=== PATIENT | female | born 1980 | race Caucasian/White ===

== ENCOUNTER 2017-04-05 15:31 | Emergency (ER) | payer MEDICAID ==
[~2017-04-05] VITALS: Ht 160 cm; Wt 81.2 kg
[2017-04-05 15:42] VITALS: Ht 160 cm; Wt 81.2 kg
[2017-04-05 17:16] LABS: BASOPHIL % 0.3 % (0-2); PLATELET COUNT 208 x10^3mcL (130-400); RED CELL DISTRIBUTION WIDTH 13.4 % (11.5-14.5)
[2017-04-05 17:30] LABS: CALCIUM 8.3 mg/dL (8.5-10.1); CARBON DIOXIDE 28.6 mmol/L (21-32); CHLORIDE SERUM 103 mmol/L (98-107); CREATININE SERUM 0.7 mg/dL (0.6-1.0); GFR1 > 60 mL/min; GLUCOSE SERUM 120 mg/dL (74-106); POTASSIUM SERUM 3.7 mmol/L (3.5-5.1); SODIUM SERUM 138 mmol/L (136-145)
[2017-04-05 17:35] LABS: ALKALINE PHOSPHATASE 108 U/L (46-116); ALT/SGPT 19 U/L (14-59); AST/SGOT 16 U/L (15-37); BILIRUBIN TOTAL 0.51 mg/dL (0.20-1.00); LIPASE 197 IU/L (73-393); TOTAL PROTEIN, SERUM 7.4 g/dL (6.4-8.2)
[2017-04-05 17:39] LABS: ALBUMIN 3.2 g/dL (3.4-5.0); AMYLASE 189 U/L (25-115)
[2017-04-05 18:35] VITALS: BP 124/70
== END 2017-04-05 18:35 | disposition home or self-care (01) ==
LOC: ED 15:31
PROVIDERS: Emergency Medicine
DX: K22.4 Dyskinesia of esophagus (principal)
CPT/HCPCS: 83880; J1885; Q0092

== ENCOUNTER 2017-04-19 08:19 | Emergency (ER) | payer MEDICAID ==
[~2017-04-19] VITALS: Ht 160 cm; Wt 80.3 kg
[2017-04-19 08:44] VITALS: Ht 160 cm; Wt 80.3 kg
[2017-04-19 12:29] LABS: BASOPHIL % 0.3 % (0-2); PLATELET COUNT 203 x10^3mcL (130-400); RED CELL DISTRIBUTION WIDTH 13.8 % (11.5-14.5)
[2017-04-19 12:34] LABS: CALCIUM 8.3 mg/dL (8.5-10.1); CARBON DIOXIDE 29.8 mmol/L (21-32); CHLORIDE SERUM 103 mmol/L (98-107); CREATININE SERUM 0.7 mg/dL (0.6-1.0); GFR1 > 60 mL/min; GLUCOSE SERUM 100 mg/dL (74-106); POTASSIUM SERUM 3.9 mmol/L (3.5-5.1); SODIUM SERUM 140 mmol/L (136-145)
[2017-04-19 12:39] LABS: ALBUMIN 3.5 g/dL (3.4-5.0); ALKALINE PHOSPHATASE 90 U/L (46-116); ALT/SGPT 17 U/L (14-59); AST/SGOT 12 U/L (15-37); BILIRUBIN TOTAL 0.6 mg/dL (0.20-1.00); TOTAL PROTEIN, SERUM 7.8 g/dL (6.4-8.2)
[2017-04-19 14:27] VITALS: BP 120/75
== END 2017-04-19 14:28 | disposition home or self-care (01) ==
LOC: ED 08:19
PROVIDERS: Specialist
DX: R10.13 Epigastric pain (principal)
CPT/HCPCS: J0780; J1885

== ENCOUNTER 2018-02-10 21:02 | Emergency (ER) | payer MEDICAID ==
[2018-02-10 21:56] LABS: BASOPHIL % 0.3 % (0-2); PLATELET COUNT 169 x10^3mcL (130-400); RED CELL DISTRIBUTION WIDTH 12.9 % (11.5-14.5)
[2018-02-10 23:14] LABS: microscopic required? NO
[2018-02-10 23:17] VITALS: BP 113/49
[2018-02-10 23:37] LABS: urine erythrocyte NEGATIVE (NEGATIVE)
== END 2018-02-11 00:02 | disposition home or self-care (01) ==
LOC: ED 21:02
PROVIDERS: Emergency Medicine
DX: O20.0 Threatened abortion (principal)
CPT/HCPCS: 36415